=== PATIENT | female | born 2000 | race Caucasian/White ===

== ENCOUNTER 2021-08-28 08:46 | Emergency (ER) | payer BC ==
[~2021-08-28] VITALS: Ht 165.1 cm; Wt 90.9 kg
[2021-08-28 09:00] VITALS: TEMP 98.7
[2021-08-28] MEDS ORDERED: MULTIVITAMIN FO1 CAP PO (09:02)
[2021-08-28] MEDS ORDERED: MEDROL 4MG DOSPA4 MG PO (10:06)
[2021-08-28 10:30] VITALS: BP 118/68; PULSE 72
== END 2021-08-28 10:31 | disposition home or self-care (01) ==
LOC: COL.ER 08:46
DX: M25.562 Pain in left knee (principal)

== ENCOUNTER 2021-09-18 09:09 | Emergency (ER) | payer BC ==
[~2021-09-18] VITALS: Ht 165.1 cm; Wt 86.4 kg
[~2021-09-18 09:09] MED LIST: MEDROL 4MG DOSPA4 MG PO; MULTIVITAMIN FO1 CAP PO
[2021-09-18 09:21] VITALS: TEMP 99.3
[2021-09-18 10:45] VITALS: BP 118/81; PULSE 80
== END 2021-09-18 10:55 | disposition home or self-care (01) ==
LOC: COL.ER 09:09
DX: U07.1 COVID-19 (principal); Z11.3 Encounter for screening for infections with a predominantly sexual mode of transmission

== ENCOUNTER 2022-05-08 21:47 | Emergency (ER) | payer BC ==
[~2022-05-08] VITALS: Ht 165.1 cm; Wt 88.6 kg
[2022-05-08 22:00] VITALS: TEMP 98.4
[2022-05-08 23:25] VITALS: BP 111/70; PULSE 70
== END 2022-05-08 23:25 | disposition home or self-care (01) ==
LOC: COL.ER 21:47
DX: H69.82 Other specified disorders of Eustachian tube, left ear (principal); J06.9 Acute upper respiratory infection, unspecified; Z20.822 Contact with and (suspected) exposure to COVID-19; Z28.310 Unvaccinated for COVID-19

== ENCOUNTER 2022-06-28 22:06 | Emergency (ER) | payer OTHER, BC ==
[~2022-06-28] VITALS: Ht 165.1 cm; Wt 86.4 kg
[2022-06-28 22:10] VITALS: TEMP 98.3
[2022-06-28 22:53] VITALS: BP 114/76; PULSE 83
== END 2022-06-28 22:54 | disposition home or self-care (01) ==
LOC: COL.ER 22:06
DX: S90.32XA Contusion of left foot, initial encounter (principal); F17.290 Nicotine dependence, other tobacco product, uncomplicated; X58.XXXA Exposure to other specified factors, initial encounter

== ENCOUNTER 2023-12-26 09:49 | Emergency (ER) | payer BC ==
[~2023-12-26] VITALS: Ht 165.1 cm; Wt 100.0 kg
[~2023-12-26 09:49] MED LIST changes: +SEPTRA DS 8001 TAB PO
[2023-12-26 09:52] VITALS: BP 125/88; TEMP 98.4
[2023-12-26] MEDS ORDERED: Ibuprofen 400 MG TAB PO ONE (10:15)
[2023-12-26 11:00] VITALS: PULSE 78
== END 2023-12-26 11:01 | disposition home or self-care (01) ==
LOC: COL.ER 09:49
DX: M79.672 Pain in left foot (principal)
CPT/HCPCS: L4386